=== PATIENT | female | born 1970 ===

== ENCOUNTER 2017-09-21 12:32 | Outpatient (CLI) | payer OTHER ==
--- NOTE | 2017-09-22 15:46 | MMO ---
BILATERAL DIGITAL SCREENING MAMMOGRAMS: History: 46-year-old female presents for digital screening mammography. Comparison: 04-20-14, 06-12-08 This study is interpreted with the assistance of computer aided detection. FINDINGS: Bilateral breast augmentation prostheses. The breasts are heterogeneously dense which can obscure sma ll masses. There are numerous typically benign calcifications in both breasts which appear stable. No direct or indirect evidence of malignancy. IMPRESSION: BIRADS category 2 - benign findings. Continued routine screening. POS: [facility]
== END 2017-09-21 12:33 | disposition home or self-care (01) ==
LOC: SCSMAMMO 12:32
PROVIDERS: ATTEND Family Medicine
DX: Z12.31 Encounter for screening mammogram for malignant neoplasm of breast (principal)
CPT/HCPCS: 77067